=== PATIENT | female | born 1930 | race Caucasian/White ===

== ENCOUNTER 2016-10-01 15:43 | Outpatient (CLI) | payer OTHER ==
--- NOTE | 2016-10-01 16:17 | DI ---
Exam: Two x-rays of the chest. Comparison: 10/04/2015. Reason for exam: Cough. FINDINGS: No pneumothorax, pleural effusion, or focal consolidation. There is stable elevation of the right hemidiaphragm. The cardiac silhouette is not enlarged. Osseous findings in the left lakia ral head are consistent with previous fracture. There are degenerative changes seen in the left jeremy ulder. Impression: No acute cardiopulmonary process.
[2016-10-01 17:52] LABS: BASOPHILS % (AUTO) 0.7 % (0.0-3.0); EOSINOPHILS # (AUTO) 0.1 K/ul (0.0-0.7); EOSINOPHILS % (AUTO) 1.1 % (0.0-7.0); HEMATOCRIT 38.4 % (37.0-47.0); HEMOGLOBIN 12.6 g/dl (12.0-16.0); IMMATURE GRANULOCYTE % (AUTO) 0.2 % (0.0-5.0); MEAN CORPUSCULAR HGB CONC 32.8 (31.8-35.4); MEAN CORPUSCULAR VOLUME 106.7 fl (81.0-99.0); MONOCYTES # (AUTO) 0.2 K/uL (0.4-2.0); MONOCYTES % (AUTO) 5.5 (0-10); NEUTROPHILS % (AUTO) 69.5; PLATELET COUNT 216 10^3/uL (140-440); WHITE BLOOD COUNT 4.35 K/ul (4.6-10.2)
[2016-10-01 18:19] LABS: ALBUMIN/GLOBULIN RATIO 1.03; ANION GAP 15.9; BILIRUBIN,TOTAL 0.37 mg/dL (0.00-1.20); BUN/CREATININE RATIO 12.5; CALCIUM 9.6 mg/dL (8.2-10.2); CHOL/HDL RATIO 2.5 (4.5-5.5); CREATININE 1.28 mg/dL (0.60-1.30); POTASSIUM 4.9 mmol/L (3.5-5.10); TOTAL PROTEIN 7.9 g/dL (5.8-8.1)
[2016-10-01 18:27] LABS: BILIRUBIN,URINE Negative (NEGATIVE); KETONES,URINE Trace (NEGATIVE); LEUKOCYTE ESTERASE ,URINE Negative (NEGATIVE); NITRITE,URINE Negative (NEGATIVE); PH,URINE 5.5 (5-9); PROTEIN,URINE Negative (NEGATIVE); URINE, BLOOD Negative (NEGATIVE)
[2016-10-01 18:34] LABS: ADD URINE MICROSCOPIC NO
== END 2016-10-01 15:44 | disposition home or self-care (01) ==
LOC: RAD 15:43
PROVIDERS: ATTEND General Practice
DX: R05 Cough (principal); C50.911 Malignant neoplasm of unspecified site of right female breast; F03.90 Unspecified dementia, unspecified severity, without behavioral disturbance, psychotic disturbance, mood disturbance, and anxiety; I10 Essential (primary) hypertension; N18.3 Chronic kidney disease, stage 3 (moderate); D51.9 Vitamin B12 deficiency anemia, unspecified; Z79.899 Other long term (current) drug therapy
CPT/HCPCS: 36415; 80053; 80061; 81001; 82306; 85025

== ENCOUNTER 2017-06-18 13:10 | Outpatient (CLI) | END 2017-06-18 13:11 | disposition home or self-care (01) | LOC: LAB 13:10 | PROVIDERS: ATTEND General Practice | DX: N18.3 Chronic kidney disease, stage 3 (moderate) (principal); D63.1 Anemia in chronic kidney disease; I10 Essential (primary) hypertension; Z79.899 Other long term (current) drug therapy | CPT/HCPCS: 36415; 80053; 80061; 85025 ==

== ENCOUNTER 2017-06-19 12:57 | Outpatient (CLI) | END 2017-06-19 12:58 | disposition home or self-care (01) | LOC: LAB 12:57 | PROVIDERS: ATTEND General Practice | DX: Z79.899 Other long term (current) drug therapy (principal) | CPT/HCPCS: 81001 ==

== ENCOUNTER 2017-07-01 10:29 | Outpatient (CLI) ==
--- NOTE | 2017-07-01 11:08 | MAMMO ---
EXAM: Left digital diagnostic mammogram (2-D and 3-D) History: Left breast palpable abnormality. Findings: MLO and CC views of the left breast reveal scattered fibroglandular breast parenchyma. Sanya ign bilateral scattered and vascular calcifications. There is a 1.6 cm spiculated mass within the lo wer inner quadrant of the left breast. Impression: Indeterminate spiculated mass within the lower inner quadrant of the left breast. Recom mend further evaluation with ultrasound. BIRADS 0
--- NOTE | 2017-07-01 11:38 | US ---
EXAM: Left breast ultrasound. History: Left breast mass. Comparison: Left diagnostic mammogram 07/01/2017 Technique: Multiple sonographic images through the left breast were obtained. Color duplex Doppler was used to interrogate vascular flow. Findings: At 9 o'clock 5 cm from nipple anterior depth there is a 1.4 cm mixed echogenic mass with ir regular margins. This correlates with mammography. No abnormal lymph nodes are seen within the left axilla. Impression: Irregular 9 o'clock left breast mass is suspicious for malignancy. Recommend further ev aluation with ultrasound guided breast biopsy BIRADS 4
== END 2017-07-01 10:30 | disposition home or self-care (01) ==
LOC: RAD 10:29
PROVIDERS: ATTEND General Practice
DX: N63.21 Unspecified lump in the left breast, upper outer quadrant (principal); N63.23 Unspecified lump in the left breast, lower outer quadrant; Z85.3 Personal history of malignant neoplasm of breast

== ENCOUNTER 2019-01-05 10:33 | Emergency (ER) ==
[2019-01-05 10:42] VITALS: BP 118/73; TEMP 97.7; BMI 29.3
--- NOTE | 2019-01-05 13:19 | CT ---
EXAM: CT Head HISTORY: Fall, severe dimension, for a scarring COMPARISON: None TECHNIQUE: CT head performed without contrast FINDINGS: There is no mass effect, midline shift, or intracranial hemmorhage. Emerson white differenti ation is preserved. There is no extra-axial collection. The ventricles, sulci, and basal cisterns a re patent and symmetric. There is chronic ischemic disease of the white matter and cerebral volume l oss. There is no depressed calvarial fracture. The mastoid air cells are clear. The visualized para nasal sinuses are clear. There are intracranial atherosclerotic calcifications. IMPRESSION: 1. No acute intracranial abnormality. 2. Chronic ischemic disease of the white matter and cerebral volume loss.
--- NOTE | 2019-01-05 13:25 | CT ---
EXAM: CT cervical spine without contrast HISTORY: Fall, severe dimension COMPARISON: None TECHNIQUE: CT cervical spine performed without intravenous contrast. Coronal and sagittal reformatt ed images obtained. FINDINGS: Cervical vertebral bodies normal height. Congenital nonunion C1. Multilevel marginal ost eophyte formation. Severe multilevel intervertebral disc space narrowing. Multilevel facet and unco vertebral hypertrophy. No fracture. No subluxation. Straightening of the normal cervical lordosis. Degenerative changes cause mild to moderate multilevel central canal narrowing and varying degrees of mild to moderate multilevel bilateral neural foraminal narrowing. Prevertebral soft tissues appea r normal. Please refer to separate report CT chest regarding findings in the lung apices. IMPRESSION: 1. No fracture or subluxation. 2. Chronic discogenic degenerative disease and facet arthrosis. 3. Straightening of the normal cervical lordosis.
--- NOTE | 2019-01-05 13:31 | CT ---
Exam: CT chest without intravenous contrast. Comparison: Chest x-ray performed 10/01/2016. Reason for exam: Fall. FINDINGS: No pneumothorax. Image interpretation is limited by the lack of intravenous contrast administration. Parenchymal thickening is seen in the right lung and left lower lobe. The aorta appears normal in co urse and caliber. The heart is prominent in size. Atherosclerotic calcifications are seen within th e coronary arterial vasculature with findings suggesting valvuloplasty. Prominent appearing mediastinal lymph nodes incompletely evaluated without intravenous contrast. There is right hemidiaphragmatic elevation. Chronic-appearing osseous deformities in the left shoulder. Impression: 1. Chronic-appearing osseous deformities in the left shoulder. 2. Basilar atelectasis/pneumonia without evidence of pneumothorax. 3. Fissural thickening in the right lung. 4. Cardiomegaly. 5. Nonspecific prominence of the mediastinal lymph nodes that is incompletely evaluated without intr avenous contrast
--- NOTE | 2019-01-05 13:37 | CT ---
Exam: CT of the pelvis without intravenous contrast. Comparison: CT abdomen pelvis performed 10/04/2015. Reason for exam: Fall. FINDINGS: Comminuted fracture of the right anabel pelvis adjacent to the symphysis pubis with multiple fracture fragments. No evidence of widening in the symphysis pubis. No other fractures are definit ively seen although evaluation is limited by diffuse osseous demineralization. 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 Degenerative changes are seen in the partially imaged lumbosacral s pine. Impression: Comminuted fracture of the left anabel pelvis adjacent to the symphysis pubis with multiple fracture fr agments. No other fractures are definitively seen although the evaluation is limited by diffuse osse ous demineralization and degenerative disease.
--- NOTE | 2019-01-05 15:17 | CT ---
Exam: CT of the abdomen without intravenous contrast. Comparison: CT pelvis performed on the same day. Reason for exam: Fall with pelvic fracture. FINDINGS: Moderately sized hiatal hernia. The partially imaged heart appears prominent in size. Image interpretation is limited by the lack of intravenous contrast. No hydronephrosis or hydroureter in either kidney. The gallbladder is been removed. The spleen , adrenal glands, and pancreas appear grossly unremarkable within limitations of a noncont rasted study. There is right hemidiaphragmatic elevation. 12 mm hypodensity in the hepatic parenchyma on axial image number 24 incompletely evaluated on this e xam. Similar appearing compression deformity in the L1 vertebral body. Multilevel degenerative disease is seen throughout the lumbar spine. Impression: 1. Similar appearing compression deformity in the L1 vertebral body. 2. No acute inflammatory findings are seen within the abdomen. 3. Cardiomegaly. 4. Right hemidiaphragmatic elevation. 5. Incompletely evaluated hepatic hypodensity measuring 1.2 cm. 6. Moderately sized hiatal hernia
--- NOTE | 2019-01-05 16:15 | ED.PDOC ---
General ED Provider: Dr. ADÁN CLEVELAND Chief Complaint: Fall Stated Complaint: POISSIBLE FALL WAS FOUND ON THE GROUND . ARRIVES AOX3 NO ACUTE DISTRESS. Time Seen by Physician: 10:34 (SEEN WITH NURSE AND FAMILY AT ALL TIMES ) Mode of Arrival: Ambulance Information Source: Family, EMT Exam Limitations: Dementia [facility] Documentation Reviewed and Agree: Yes Does patient meet sepsis criteria?: No System Inflammatory Response Syndrome: Not Applicable Sepsis Protocol: For patient's 13 years and over: Temp is 96.8 and below OR 101 and greater Pulse >90 BPM Resp >20/minute Acutely Altered Mental Status Are patient's symptoms suggestive of a new infection, such as: -Pneumonia -Skin, Soft Tissue -Endocarditis -UTI -Bone, Joint Infection -Implantable Device -Acute Abdominal Infection -Wound Infection -Meningitis -Blood Stream Catheter Infection -Unknown Trauma/Injury Complaint Exam - Trauma Complaint/Exam Location of Pain or Injury: Reports: Other (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 Denies: Head, Scalp, Face, Neck, RUE, LUE, Chest, Abdomen, Back, RLE , LLE Mechanism of Injury: Reports: Fall (IS POSSIBLE WAS FOUND ON THE GROUND ) Onset/Duration: TODAY Symptoms Are: Still present Timing of Treatment: Immediate Initial Severity: Mild Current Severity: Mild Character: Denies: Dull (IN NO PAIN ) Aggravating: Reports: None Alleviating: Reports: None Associated Signs and Symptoms: Denies: LOC, Confusion, Memory loss, Lethargy, Vomiting, Bleeding, Bruising, Swelling, Extremity disuse, Painful respiration, Hoarseness, Dysphagia, Hemoptysis, Significant blood loss : No Penetrating Injury Risk Factors: Reports: None Related Surgical History: Reports: None Nexus Low Risk Criteria: No post-midline CS tender, No evidence of intoxicat., No Altered LOC, No focal neuro deficit, No distracting injuries Trauma Findings: Absent: [place] eyes, Hemotympanum, Nasal deformity, Dental tenderness, Dental injury, Dental malocclusion, Neck tenderness, Neck spasm, SubQ Air, Crepitus, Airway obstructed, Trachea displaced, Labored respirations, Decreased breath sounds, Muffled heart sounds, Weak pulses, Absent pulses, Abdominal distention, Pelvic tenderness, Back malalignment Skin Findings: Present: Normal findings Review of Systems - Review Of Systems Constitutional: Reports: No symptoms Eyes: Reports: No symptoms Ears, Nose, Mouth, Throat: Reports: No symptoms Respiratory: Reports: No symptoms Cardiac: Reports: No symptoms GI: Reports: No symptoms : Reports: No symptoms Musculoskeletal: Reports: No symptoms Skin: Reports: No symptoms Neurological: Reports: No symptoms Endocrine: Reports: No symptoms Hematologic/Lymphatic: Reports: No symptoms All Other Systems: Reviewed and Negative Past Medical History - Past Medical History Previously Healthy: Yes Endocrine: Reports: None Cardiovascular: Reports: None Respiratory: Reports: None Hematological: Reports: Anemia Gastrointestinal: Reports: None Genitourinary: Reports: CKD Neuro/Psych: Reports: Dementia Musculoskeletal: Reports: None 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) Last Menstrual Period: na - Surgical History General Surgical History: Reports: None - Family History Family History: Reports: None - Social History Smoking Status: Never smoker Hx Substance Use: No Alcohol Screening: None - Immunizations Tetanus Shot up to Date: No Physical Exam - Physical Exam Appearance: Well-appearing, No pain distress, Well-nourished Eyes: KATJA, EOMI, Conjunctiva clear ENT: Ears normal, Nose normal, Oropharynx normal Respiratory: Airway patent, Breath sounds clear, Breath sounds equal, Respirations nonlabored Cardiovascular: RRR, Pulses normal, No rub, No murmur GI/: Soft, Nontender, No masses, Bowel sounds normal, No Organomegaly Musculoskeletal: Normal strength, ROM intact, No edema, No calf tenderness Skin: Warm, Dry, Normal color Neurological: Sensation intact, Motor intact, Reflexes intact, Cranial nerves intact, Alert, Oriented Psychiatric: Affect appropriate, Mood appropriate Interpretation - Radiology Interpretation Radiology Interpretation By: Radiologist Exam Interpreted: CT Scan (POSTIVE FOR PELVIC FX ) Physician Notification - Case Discussed Physician Notified: JOSÉ MIGUEL Time of Notification: 16:17 (TRANSFER TO [facility]) Critical Care Note - Critical Care Note Total Time (mins): 0 Course - Course Hematology/Chemistry: 01/05/19 14:22 01/05/19 14:22 Orders, Labs, Meds: Lab Review 01/05/19 01/05/19 01/05/19 14:22 14:22 14:22 WBC 8.28 RBC 3.14 L Hgb 11.4 L Hct 34.1 L MCV 108.6 H MCH 36.3 H MCHC 33.4 RDW Coeff of Ankur 12.6 Plt Count 142 Immature Gran % (Auto) 0.6 Neut % (Auto) 83.5 Lymph % (Auto) 11.4 [place] % (Auto) 4.3 Eos % (Auto) 0.1 Baso % (Auto) 0.1 Immature Gran # (Auto) 0.1 Neut # (Auto) 6.9 Lymph # (Auto) 0.9 [place] # (Auto) 0.4 Eos # (Auto) 0.0 Baso # (Auto) 0.0 PT 9.8 INR 0.98 APTT 22.3 L Sodium 140.3 Potassium 3.93 Chloride 102.9 Carbon Dioxide 28.7 Anion Gap 12.63 BUN 17.9 H Creatinine 1.17 Estimated GFR (MDRD) 44.00 BUN/Creatinine Ratio 15.29 Glucose 104.3 Calcium 9.04 Total Bilirubin 0.64 AST 34.9 ALT 21.9 Alkaline Phosphatase 56.1 Total Protein 6.82 Albumin 4.06 Globulin 2.76 Albumin/Globulin Ratio 1.47 Orders Category Date Time Status EKG-(ED ONLY) Stat CARDIO 01/05/19 14:05 Completed CBC W/ AUTO DIFF Stat LAB 01/05/19 14:22 Completed COMPREHENSIVE METABOLIC PANEL Stat LAB 01/05/19 14:22 Completed PARTIAL THROMBOPLASTIN TIME Stat LAB 01/05/19 14:22 Completed PT WITH INR Stat LAB 01/05/19 14:[address] ABDOMEN W/O CONTRAST Stat RADS 01/05/19 14:[address] CERVICAL SPINE W/O CONTRAST Stat RADS 01/05/19 11:[address] CHEST W/O CONTRAST Stat RADS 01/05/19 11:[address] HEAD W/O CONTRAST Stat RADS 01/05/19 11:[address] PELVIS W/O CONTRAST Stat RADS 01/05/19 11:04 Completed Vital Signs: Temp Pulse Resp BP Pulse Ox 01/05/19 10:34 97.7 F 80 16 118/73 94 L Departure - Departure Time of Disposition: 16:17 Disposition: [facility] Discharge Problem: Pelvic fracture Qualifiers: Encounter type: initial encounter Pelvic bone location: unspecified part of pelvis Fracture type: closed Condition: Good Pt referred to PMD for follow-up: Yes IPMP verified?: No Allergies/Adverse Reactions: Allergies No Known Allergies Allergy (Verified 01/05/19 10:45) Home Medications: Ambulatory Orders Calcium Carbonate/Vitamin D3 [Caltrate 600 + D Tablet] 1 each PO DAILY tab-cap 10/04/15 Multivit with Calcium,Iron,Min [Women's Daily Multivitamin] 1 each PO DAILY tab -cap 10/04/15 Acetaminophen [Tylenol Arthritis] 650 mg PO BID 01/05/19 Letrozole [Femara] 2.5 mg PO DAILY 01/05/19 Tumeric 1 tab PO DAILY 01/05/19 Transfer Form Completed: Yes Disposition Discussed With: Patient
== END 2019-01-05 16:58 | disposition short-term general hospital (02) ==
LOC: ED 10:33
DX: S32.89XA Fracture of other parts of pelvis, initial encounter for closed fracture (principal); W19.XXXA Unspecified fall, initial encounter; F03.90 Unspecified dementia, unspecified severity, without behavioral disturbance, psychotic disturbance, mood disturbance, and anxiety; N18.9 Chronic kidney disease, unspecified
CPT/HCPCS: 36415; 80053; 85025; 85610; 85730; 93005; 93010; 99285